=== PATIENT | male | born 1970 | race American Indian/Alaskan Native ===

== ENCOUNTER 2017-01-06 14:00 | Emergency (ER) | payer OTHER ==
[2017-01-06 14:13] VITALS: TEMP 98.9; O2SAT 98
--- NOTE | 2017-01-06 14:29 | C.PDOC ---
History Of Present Illness 46 year old patient, with a past medical history of hypertension, presents to the ED complaining of right ear pain for the last 3 days. Patient also requests a refill of his blood pressure medication. He is from [place], working here, and ran out of his medications about a month ago. He is unsure of the name. Patient denies fever, nausea, vomiting, dizziness, headache, or shortness of breath. Time Seen by Provider: 01/06/17 14:15 Chief Complaint (Nursing): ENT Problem History Per: Patient History/Exam Limitations: None Onset/Duration Of Symptoms: Days (3) Current Symptoms Are (Timing): Still Present Quality (Ear): Pain W/Touch Symptoms Have Been: Continuous Severity: Mild Pain Scale Rating Of: 3 Past Medical History Reviewed: Historical Data, Nursing Documentation, Vital Signs Vital Signs: Last Vital Signs Temp 98.9 F 01/06/17 14:11 Pulse 81 01/06/17 14:41 Resp 18 01/06/17 14:41 BP 154/100 H 01/06/17 14:41 Pulse Ox 98 01/06/17 14:41 - Medical History PMH: HTN Family History: States: Unknown Family Hx - Social History Hx Alcohol Use: Yes Hx Substance Use: Yes Review Of Systems Except As Marked, All Systems Reviewed And Found Negative. Constitutional: Negative for: Fever ENT: Positive for: Ear Pain (right) Respiratory: Negative for: Shortness of Breath Gastrointestinal: Negative for: Nausea, Vomiting Neurological: Negative for: Headache, Dizziness Physical Exam - Physical Exam Appears: Non-toxic, No Acute Distress Skin: Warm, Dry Head: Atraumatic, Normacephalic Eye(s): bilateral: Normal Inspection Ear(s): Left: Normal, Right: TM Erythema Nose: Normal Oral Mucosa: Moist Throat: Normal, No Erythema, No Exudate Neck: Normal ROM, Supple Chest: Symmetrical Cardiovascular: Rhythm Regular Respiratory: Normal Breath Sounds, No Accessory Muscle Use, No Rales, No Rhonchi , No Wheezing Extremity: Normal ROM Neurological/Psych: Oriented x3, Normal Speech Gait: Steady ED Course And Treatment O2 Sat by Pulse Oximetry: 98 (room air) Pulse Ox Interpretation: Normal Medical Decision Making Medical Decision Making: Impression: 46 y/o male with right ear pain and will treat clinically for OM with amoxicillin Patient cannot recall his BP meds states it starts with N. Will treat with Norvasc. Patient remained well afebrile and in no acute distress. Denies headache or dizziness. Disposition Counseled Patient/Family Regarding: Need For Followup, Rx Given - Disposition Disposition: HOME/ ROUTINE Disposition Time: 14:40 Condition: STABLE Additional Instructions: Follow up with your primary medical doctor or clinic in 2-5 days for further evaluation. Take medications as prescribed. Return to the emergency department at any time if symptoms persist or worsen. Prescriptions: amLODIPine [Norvasc] 2.5 mg PO DAILY #30 tab Amoxicillin [Amoxil 500 mg Cap] 500 mg PO BID #14 cap Instructions: Otitis Media (ED), Medicine Refill (ED) - POA Present On Arrival: None - Clinical Impression Clinical Impression: Medication refill, Otitis media - PA / INSURANCE ADJUSTER / Resident Statement MD/DO has reviewed & agrees with the documentation as recorded. - Scribe Statement The provider has reviewed the documentation as recorded by the Scribe Caroline Suarez All medical record entries made by the Scribe were at my direction and personally dictated by me. I have reviewed the chart and agree that the record accurately reflects my personal performance of the history, physical exam, medical decision making, and the department course for this patient. I have also personally directed, reviewed, and agree with the discharge instructions and disposition.
[2017-01-06 14:42] VITALS: BP 154/100; PULSE 81; RESP 18
== END 2017-01-06 14:44 | disposition home or self-care (01) ==
LOC: C.ER 14:00
DX: H66.91 Otitis media, unspecified, right ear (principal); Z76.0 Encounter for issue of repeat prescription